=== PATIENT | female | born 1965 | race Caucasian/White ===

== ENCOUNTER → 2024-01-26 09:40 | Outpatient (CLI) | payer OTHER, SELFPAY ==
--- NOTE | 2024-01-26 09:43 | DI.CT.S_ITS ---
PROCEDURE: CT PEL WO CON INDICATIONS: S/P TOTAL REPLACEMENT OF RT HIP TECHNIQUE: Noncontrast 3 mm axial sections acquired through the bony pelvis, with coronal and sagittal reformatting. COMPARISON: None. FINDINGS: Image quality: Excellent. Bones: Total right hip arthroplasty. Mild heterotopic ossification adjacent to the prosthesis along the acetabulum. The acetabular component extends beyond the medial contours of the iliac bone into the pelvis and is positioned more superiorly than the contralateral hip on telephone advice nurse. Inferior acetabulum perihardware lucency measuring 6 millimeters. Soft tissues: Scattered diverticulosis without evidence of diverticulitis. Normal a noncontrast appearance of the remaining pelvic soft tissues. IMPRESSION: There is superior and medial positioning of the acetabular component of the prosthesis when compared to the contralateral side suggesting acetabular component loosening and/or migration. Dictated by: Levar Dc M.D. on 01/26/2024 at 15:17 Approved by: Levar Dc M.D. on 01/26/2024 at 15:26
== END ==
PROVIDERS: Referring Provider Orthopaedic Surgery Adult Reconstructive Orthopaedic Surgery; Visit Provider Orthopaedic Surgery Adult Reconstructive Orthopaedic Surgery
DX: Z96.641 Presence of right artificial hip joint (principal); Z09 Encounter for follow-up examination after completed treatment for conditions other than malignant neoplasm; K57.90 Diverticulosis of intestine, part unspecified, without perforation or abscess without bleeding
CPT/HCPCS: 72192

== ENCOUNTER → 2024-04-10 | Outpatient (CLI) | payer OTHER, SELFPAY ==
--- NOTE | 2024-04-10 | DI.MG.S_ITS ---
BILATERAL DIGITAL SCREENING MAMMOGRAM 3D/2D WITH CAD: 04/10/2024 CLINICAL: Routine screening. Family history of breast cancer. Additional films were requested but not obtained. Both breasts are heterogeneously dense, which may obscure small masses (category c / 51-75% glandular tissue). Current study was also evaluated with a Computer Aided Detection (CAD) system. No significant masses, calcifications, or other findings are seen in either breast. IMPRESSION: NEGATIVE There is no mammographic evidence of malignancy. A 1 year screening mammogram is recommended. Based on Tyrer-Cuzick model (a risk assessment model), the patient's lifetime risk is 21.3% and her 10 year risk is 9.0%. If a patient has an elevated risk, a more comprehensive evaluation should be considered and/or a referral to a genetic counselor. The [place] [employer], [place] [employer], and NCCN Guidelines advise the consideration of Breast MRI as an adjunct to screening mammography in patients whose Lifetime risk to develop breast cancer is 20% or higher. This exam was interpreted at Station ID: [id number]. NOTE: For mammograms, a report in lay terms will be sent to the patient. Approximately 15% of breast malignancies will not be visualized mammographically. In the management of a palpable breast mass, a negative mammogram must not discourage biopsy of a clinically suspicious lesion. Electronically Signed By: Carlos mehta/wesly:04/25/2024 14:43:25 letter sent: Normal Exam ACR BI-RADS Category 1: Negative [id number]
== END ==
PROVIDERS: PCP Physician Assistant Medical; Referring Provider Physician Assistant Medical; Visit Provider Physician Assistant Medical
DX: Z12.31 Encounter for screening mammogram for malignant neoplasm of breast (principal); Z80.3 Family history of malignant neoplasm of breast; R92.333 Mammographic heterogeneous density, bilateral breasts
CPT/HCPCS: 77063; 77067

== ENCOUNTER → 2024-04-14 10:41 | Outpatient (CLI) | payer OTHER, SELFPAY ==
--- NOTE | 2024-04-14 | DI.RAD.S_ITS ---
PROCEDURE: XR DEXA AXIAL SKELETON INDICATIONS: Asymptomatic menopausal state COMPARISON: None. FINDINGS: Lumbar Spine: Bone mineral density 1.026 g/cm2, T score -0.2. Left Hip: Bone mineral density 0.894 g/cm2, T score -0.4. Left Femoral Neck: Bone mineral density 0.720 g/cm2, T score -1.2. Left Forearm: Bone mineral density 0.679 g/cm2, T score -0.3. Fracture Risk Calculation (when applicable): 10-year fracture risk of a major osteoporotic fracture 13% and of a hip fracture 0.8%. (T score greater or equal to -1.0 to: NORMAL) (T score from -1.1 to -2.4: OSTEOPENIA) (T score less than or equal to -2.5: OSTEOPOROSIS) IMPRESSION: Osteopenia with increased 10 year fracture risk as above. Follow-up guidelines as follows: Osteoporosis: Consider a repeat DEXA and Vertebral Fracture Assessment (VFA) exam in 2 years or sooner if medically necessary, to reassess this patient's status. Osteopenia: Consider a repeat DEXA in 2-3 years to reassess this patient's status, or if there is a new clinical indication. Normal: Consider a repeat DEXA in 5 years or sooner, or if there is a new clinical indication. All treatment decisions require clinical judgment and consideration of individual patient factors, including patient preferences, comorbidities, previous drug use, risk factors not captured in the FRAX model (e.g., frailty, falls, vitamin D deficiency, increased bone turnover, interval significant decline in bone density ) and possible under- or over-estimation of fracture risk by FRAX. In addition, the NOF Guide recommends that FDA-approved medical therapies be considered in postmenopausal women and men age >= 50 years with a: * Hip or vertebral (clinical or morphometric) fracture * T-score of <=-2.5 at the spine or hip * Ten-year fracture probability by FRAX of >= 3% for hip fracture or >=20% for major osteoporotic fracture. People with diagnosed cases of osteoporosis or at high risk for fracture should have regular bone mineral density tests. For patients eligible for Medicare, routine testing is allowed once every 2 years. The testing frequency can be increased to one year for patients who have rapidly progressing disease, those who are receiving or discontinuing medical therapy to restore bone mass, or have additional risk factors. Dictated by: Ronald Flores M.D. on 04/14/2024 at 17:37 Approved by: Ronald Flores M.D. on 04/14/2024 at 17:38
== END ==
PROVIDERS: PCP Physician Assistant Medical; Referring Provider Physician Assistant Medical; Visit Provider Physician Assistant Medical
DX: M85.852 Other specified disorders of bone density and structure, left thigh (principal); Z78.0 Asymptomatic menopausal state
CPT/HCPCS: 77080; 77081

== ENCOUNTER 2024-06-13 08:22 | Day surgery (SDC) | payer OTHER, SELFPAY ==
[2024-06-11 15:09] VITALS: BMI 25.7
--- NOTE | 2024-06-13 | PATH_ITS ---
[facility] Accession Number: [id number] No. of containers..01 Tissue . 01 Material submitted: . cervix - CERVIX BIOPSY, SUTURE 12 O'CLOCK . 01 Diagnosis: UTERINE CERVIX, SUTURE AT 12 O'CLOCK, LEEP CONIZATION: High-grade squamous intraepithelial lesion (PEÑA-2/moderate dysplasia) extending to rare endocervical gland. Backround low-grade squamous intraepithelial lesion (PEÑA-1/mild dysplasia) and previous biopsy changes also present. Negative for glandular dysplasia and invasive carcinoma. Surgical margins: High-grade squamous intraepithelial lesion (PEÑA-2/moderate dysplasia) focally involves the endocervical margin, please see microscopic description. Remaining margins are not involved. MRV 06/18/2024 1358 Local . 01 Electronically signed: . Rod Garcia MD, Pathologist NPI- [id number] . 01 Gross description: . Received in formalin with two identifiers and suture 12 o'clock cervix biopsy, is an oriented circular fragment of skin with a suture at 12 o'clock per the requisition (1.4 cm from 12 to 6, 1.6 cm from 3 to 9, and 0.6 cm thick) with akins wrinkled ectocervix and a slit like os 0.5 cm in diameter. The endocervical margin is inked orange while the remaining stromal margins are inked blue. The specimen is radially sectioned and submitted entirely as follows: A1: 12 to 3. A2: 3 to 6. A3: 6 to 9. A4: 9 to 12. ([id number]) /JAMIE 06/14/2024 2154 Local . 01 Microscopic: . Microscopic examination reveals moderate squamous dysplasia extending into a rare endocervical gland. To better evaluate and confirm margin involvement by high-grade squamous intraepithelial lesion, p16 immunostain is performed (blocks A2 and A4) and is strong positive, supporting the morphologic impression of endocervical margin involvement. . Remaining margins are not involved. . * This test was developed and the performance characteristics were validated by [employer]. It has not been cleared or approved by the U.S. Food and Drug Administration. . 01 Pathologist provided ICD-10: N87.1 . 01 CPT . 328288, Q47365 Specimen Comment: A courtesy copy of this report has been sent to [phone] Performed at: [address] [address], [place], [place] [id number] MD Kailash Paul MD Phone: [phone]
[2024-06-13 08:38] VITALS: BP 156/89; PULSE 66; RESP 16; TEMP 36.2; O2SAT 99; BMI 25.7
[2024-06-13] MEDS: LACTATED RINGERS 1,000 ML 21 ML IV (08:58)
[2024-06-13] MEDS: ACETAMINOPHEN 325 MG TABLET 975 MG PO (08:58)
--- NOTE | 2024-06-13 09:24 | PM.GYNHP.1 ---
History of Present Illness History of Present Illness Reason for admission: other (Surgery for PEÑA 2 of the cervix) Narrative: Maria Ines Castillo is a 58 year old female 4 para 4 with PEÑA 2 of the cervix. She presents for a LEEP cone biopsy of the cervix. [facility] Surgical History (Updated 06/11/24 @ 15:09 by Brianna Parmar RN) H/O total hip arthroplasty Social History household members: spouse Smoking Status: Never smoker Meds Home Medications and Allergies Allergies Allergy/AdvReac Type Severity Reaction Status Date / Time No Known Drug Allergies Allergy Verified 06/13/24 08:37 Exam Vital Signs (past 8 hours): - 06/13/24 08:38 Temperature 97.2 F L Pulse Rate 66 Respiratory Rate 16 Blood Pressure 156/89 H Pulse Oximetry 99 Oxygen Delivery Method Room Air Oxygen Delivery Method Room Air Narrative Exam Narrative: HEENT: No thyromegaly, no anterior cervical or supraclavicular lymphadenopathy. Lungs:Clear to auscultation bilaterally, no wheezes. Cardiovascular: Regular rate and rhythm, no murmurs, rubs, or gallops. Abdomen: No scars. No hepatosplenomegaly. No masses palpable. External genitalia: Normal Vagina: Normal Cervix: Normal Bimanual exam: 6 Week size anteverted uterus. Mobile. Extremities: No edema Assessment & Plan Assessment & Plan narrative: Assessment: 58-year-old 4 para 4 with PEÑA 2 of the cervix Plan: LEEP cone biopsy of the cervix The risks, benefits, and alternatives to the procedure were explained to the patient. The risks including bleeding and infection. She understands these risks and agrees to proceed. A full par Q was held and consent form was signed. Time-Based Coding :: [TOTAL MINUTES] spent with patient and on the chart (including review of chart, obtaining history, exam, reviewing outside data, placing orders, documenting exam and treatment plan, and counseling patient) on [DATE].
--- NOTE | 2024-06-13 09:26 | PM.PREOP ---
Pre-operative Note Interval Note History & Physical reviewed/Exam performed by Physician: Yes Changes to H&P: No H&P completed within 30 days and has changed as indicated here:: 06/13/24
--- NOTE | 2024-06-13 09:46 | SUR.OPER ---
Lithotomy on padded OR bed, head on pillow, arms secured on padded arm boards at <90 degrees abduction. Legs secured in padded yellow fins stirrups.
[2024-06-13] MEDS: IODINE TOP (10:00)
[2024-06-13] MEDS: [UNRECOGNIZED DRUG - OTHER] TOP (10:00)
[2024-06-13 10:11] VITALS: BP 140/68; PULSE 75; RESP 20; TEMP 36.5; O2SAT 100
--- NOTE | 2024-06-13 10:16 | PM.GYNOP.1 ---
Operative Date/Time/Diagnoses Date of procedure: 06/13/24 Time of procedure: 10:16 Pre-op diagnosis: PEÑA 2 of the cervix Post-op diagnosis: same Procedure & Clinicians Procedure: Procedures Operation Date: 06/13/24 09:00 Actual Procedure Side Surgeon p LEEP Cone, BX of cervix Not Applicable Savanna Michael MD Indications: 58-year-old 4 para 4 with PEÑA 2 by colposcopic biopsy Surgeon: Savanna Michael Anesthesia Type: General (LMA) Operative Notes Findings: Lugol's light area at 6 o'clock position Closure Type: not applicable Specimen(s): other (LEEP cone biopsy of the cervix with suture at 12 o'clock) Estimated blood loss (mL): 2 Blood products transfused: none Procedure in detail: After informed consent was obtained, the patient was taken to the operating room where she was placed in the dorsal supine position. After adequate LMA general anesthesia was achieved, she was placed in the dorsal lithotomy position, and prepped and draped in the usual sterile fashion. A time-out was performed. A plastic coated bivalve speculum was placed into the vagina. A single-tooth tenaculum was placed on the anterior lip of the cervix. The cervix was coated with Lugol solution. There was a Lugol's light area at the 6 o'clock position. Using the 15 mm loop with settings at 80 cut and 60 cautery, a LEEP cone biopsy was performed. Ball cautery was used for hemostasis. A silk suture was placed at 12 o'clock. The single-tooth tenaculum was removed from the anterior lip of the cervix. The plastic coated speculum was removed from the vagina. Sponge, lap, and instrument counts were correct x2. The patient tolerated the procedure well, and was taken to PACU in stable condition. N 95 masks were worn by all personnel. Three sources of suction were used during the procedure. Complications: none Post-operative Condition: stable Disposition: PACU Plan for aftercare: Home after recovery
[2024-06-13 10:17] VITALS: BP 126/62; PULSE 82; RESP 18; O2SAT 99
[2024-06-13 10:22] VITALS: BP 132/70; PULSE 76; RESP 16; O2SAT 100
[2024-06-13 10:29] VITALS: BP 142/61; PULSE 79; RESP 16; O2SAT 99
== END 2024-06-13 10:54 | disposition home or self-care (01) ==
PROVIDERS: PCP Physician Assistant Medical; Referring Provider Obstetrics & Gynecology; Visit Provider Obstetrics & Gynecology
PROC: 0UBC7ZZ Excision of Cervix, Via Natural or Artificial Opening (ICD-10-PCS; CPT 57522; principal; 2024-06-13 09:00)
DX: N87.1 Moderate cervical dysplasia (principal)
CPT/HCPCS: 57522; J1100; J1885; J2405; J2704; J3010

== ENCOUNTER 2024-08-17 11:09 | Emergency (ER) | payer OTHER, SELFPAY ==
[2024-08-17 11:14] VITALS: BP 152/87; PULSE 72; RESP 16; TEMP 36.4; O2SAT 99; BMI 25.7
--- NOTE | 2024-08-17 11:39 | ED_ITS ---
HPI - Female Genitourinary <Lisseth Boo PA-C - Last Filed: 08/17/24 12:12> General Chief complaint: Urogenital-Female Stated complaint: POSS UTI Time Seen by Provider: 08/17/24 11:31 History of Present Illness HPI Narrative: Ms. Castillo is a very healthy 59-year-old female with a past medical history of cervical dysplasia who presents to the emergency department for UTI symptoms since yesterday. Patient reports yesterday she developed burning with ur ination, frequency of urination, and increased urge. States that her symptoms feel like a UTI. Reports recent sexual intercourse with her and also holding her bladder which she believes may precipitated the symptoms. She denies any pain during intercourse, vaginal discomfort, vaginal discharge, abdominal pain, nausea, vomiting, constipation, diarrhea, flank pain, fevers. chills. She does have some discomfort in the low back associated with urinating. States it has been a few years since she is needed antibiotics for UTI. She has not taken any medications prior to arrival. Related Data Allergies Allergy/AdvReac Type Severity Reaction Status Date / Time No Known Drug Allergies Allergy Verified 07/16/24 15:23 Review of Systems <Lisseth Boo PA-C - Last Filed: 08/17/24 12:12> Review of Systems ROS Unobtainable: All systems reviewed & are unremarkable except as noted in HPI and below Patient History <Lisseth Boo PA-C - Last Filed: 08/17/24 12:12> Surgical History Status post LEEP (loop electrosurgical excision procedure) of cervix H/O total hip arthroplasty Exam <Lisseth Boo PA-C - Last Filed: 08/17/24 12:12> Narrative Exam Narrative: GENERAL: 59 year old patient appears younger than stated age. Well-developed patient, in no acute distress. HEAD: Atraumatic. Normocephalic. EYES: Extraocular motions intact. No scleral icterus. No injection or drainage. ENT: Nose without bleeding, purulent drainage. NECK: Trachea midline. Cervical ROM intact. CARDIOVASCULAR: Regular rate RESPIRATORY: ?Nonlabored respirations. ?Speaking in clear, full sentences. GASTROINTESTINAL: Abdomen soft, non-tender, nondistended. EXTREMITIES: No edema or joint tenderness. BACK: No CVA tenderness. NEURO: AOx3. ?Clear speech. ?Moves all 4 extremities appropriately. SKIN: No rash or erythema of visible areas Initial Vital Signs Initial Vital Signs: Vital Signs Temperature 97.5 F L 08/17/24 11:14 Pulse Rate 72 08/17/24 11:14 Respiratory Rate 16 08/17/24 11:14 Blood Pressure 152/87 H 08/17/24 11:14 Pulse Oximetry 99 08/17/24 11:14 Oxygen Delivery Method Room Air 08/17/24 11:14 <Alexa Tyson DO - Last Filed: 08/22/24 08:37> Initial Vital Signs Initial Vital Signs: Vital Signs Temperature 97.5 F L 08/17/24 11:14 Pulse Rate 72 08/17/24 11:14 Respiratory Rate 16 08/17/24 11:14 Blood Pressure 152/87 H 08/17/24 11:14 Pulse Oximetry 99 08/17/24 11:14 Oxygen Delivery Method Room Air 08/17/24 11:14 Course <Lisseth Boo PA-C - Last Filed: 08/17/24 12:12> Orders Ordered: ED Orders 08/17/24 11:16 Urine Culture Stat 08/17/24 11:38 Urine Microscopic Stat Vital Signs Vital signs: Vital Signs - 8 hr 08/17/24 11:14 Temperature 97.5 F L Pulse Rate 72 Respiratory Rate 16 Blood Pressure 152/87 H Pulse Oximetry 99 Oxygen Delivery Method Room Air <Alexa Tyson DO - Last Filed: 08/22/24 08:37> Orders Ordered: ED Orders 08/17/24 11:16 Urine Culture Stat 08/17/24 11:38 Urine Microscopic Stat Vital Signs Vital signs: Vital Signs - 8 hr 08/17/24 11:14 Temperature 97.5 F L Pulse Rate 72 Respiratory Rate 16 Blood Pressure 152/87 H Pulse Oximetry 99 Oxygen Delivery Method Room Air MDM - Female Genitourinary <Lisseth Boo PA-C - Last Filed: 08/17/24 12:12> Medical Records Attestation: I reviewed the patient's medical records. Lab Data Labs: Lab Results 08/17/24 Range/Units 11:16 Urine RBC 5-10/hpf H (0-5/HPF) Urine WBC 30-100/hpf H (0-5/HPF) Ur Squamous Epith Cells None seen (0-5/HPF) Urine Bacteria Moderate (10-30) H (None) Ur Culture Indicated? Specimen cultured Vol Urine Centrifuged 10ml (spun) Urine Dip Bedside Urine Glucose Negative Bedside Urine Bilirubin - Negative Bedside Urine Ketone - Negative Urine Specific [place] 1.005 Bedside Urine Occult Blood +++ Bedside Urine pH 6.5 Bedside Urine Protein - Negative Bedside Urine Urobilinogen - Negative Bedside Urine Nitrite - Negative Bedside Urine Leukocytes +++ 500 Esterase MDM Narrative Medical decision making narrative: 59-year-old female with a past medical history of cervical dysplasia who presents to the emergency department for UTI symptoms since yesterday. Differential diagnosis includes but is not limited to UTI, cystitis, pyelo nephritis, vulvovaginal candidiasis, STD, kidney stone, etc. On exam the patient is in no acute distress, nontoxic appearing, afebrile and not tachycardic. BP slightly elevated 152/87, pt currently monitoring with her PCP, she is asymptomatic. Her abdomen is soft and nontender and she has no CVA tenderness. Patient is reporting a history of dysuria, frequency, urge consistent with UTI. She denies any vaginal discomfort or vaginal discharge. Urinalysis ordered. Urinalysis reveals 5-10 RBCs, 30-100 urine WBCs, moderate bacteria. No squamous epithelial cells. Urinalysis was cultured. Consistent with urinary tract infection. Patient was prescribed Macrobid b.i.d. x5 days in addition to azo x2 days for pain relief. Discussed signs and symptoms to return to the ER for. Advised follow up with PCP. Patient verbalized understanding of all information and is stable for discharge. Medication sent to pharmacy of choice. <Alexa Tyson, DO - Last Filed: 08/22/24 08:37> Lab Data Labs: Lab Results 08/17/24 Range/Units 11:16 Urine RBC 5-10/hpf H (0-5/HPF) Urine WBC 30-100/hpf H (0-5/HPF) Ur Squamous Epith Cells None seen (0-5/HPF) Urine Bacteria Moderate (10-30) H (None) Ur Culture Indicated? Specimen cultured Vol Urine Centrifuged 10ml (spun) Urine Dip Bedside Urine Glucose Negative Bedside Urine Bilirubin - Negative Bedside Urine Ketone - Negative Urine Specific [place] 1.005 Bedside Urine Occult Blood +++ Bedside Urine pH 6.5 Bedside Urine Protein - Negative Bedside Urine Urobilinogen - Negative Bedside Urine Nitrite - Negative Bedside Urine Leukocytes +++ 500 Esterase Discharge Plan Departure Patient Disposition: Home Clinical Impression: UTI (urinary tract infection) Qualifiers: Urinary tract infection type: acute cystitis Hematuria presence: with hematuria Qualified Code(s): N30.01 - Acute cystitis with hematuria Instructions: DI for Urinary Tract Infection (UTI) Activity Restrictions/Additional Instructions: Today your urine test was consistent with a urinary tract infection. I have sent both antibiotics and pain medication to the pharmacy for you to start today. A urine culture has been sent to the lab and if your antibiotic needs to be changed you will be called in about 3 days, otherwise you will not receive a phone call. Complete the full 5 day course of antibiotics even if your symptoms improve before that. If you develop fevers, chills, severe flank pain, vomiting, any other concerns, please return to the ER. Please follow up with your primary care doctor within the next week for ER follow-up. (If you do not have a PCP you can call [phone]. ?to schedule an appointment with an [facility] Primary Care Provider) IF YOU DEVELOP ANY NEW OR WORSENING SYMPTOMS, RETURN TO THE ER! Please read the attached instructions, they highlight more specific treatments and interventions for you at home. Thank you for letting me participate in your care, Lisseth Boo PA-C Referrals: Atiya Triveid PA-C [Primary Care Provider] - Stand Alone Forms: Patient Portal/API/Survey ED Sign-out <Alexa Tyson DO - Last Filed: 08/22/24 08:37> Cosign ED Attending Hai Attestation: I was immediately available in the department for consultation.
[2024-08-17 11:58] LABS: Urine Volume 10mL (spun)
[2024-08-17 11:59] LABS: Bacteria Urine Moderate (10-30); Culture Indicated Urine Specimen Cultured; RBC Urine 5-10/HPF (0-5/HPF); Squamous Epithelial Cell Urine None Seen (0-5/HPF); WBC Urine 30-100/HPF (0-5/HPF)
== END 2024-08-17 12:14 | disposition home or self-care (01) ==
PROVIDERS: Emergency Provider Physician Assistant; PCP Physician Assistant Medical
DX: N30.01 Acute cystitis with hematuria (principal)
CPT/HCPCS: 81003; 81015; 87077; 87086; 87186; 99281; 99282

== ENCOUNTER → 2025-04-06 07:09 | Outpatient (CLI) | payer OTHER, SELFPAY ==
--- NOTE | 2025-04-06 07:35 | DI.MRI.S_ITS ---
PROCEDURE: MR LUMBAR SPINE WO CON INDICATIONS: LUMBAR RADICULOPATHY TECHNIQUE: Noncontrast sagittal T1 spin echo and T2 fast echo, sagittal STIR, and T2 fast spin echo through the lumbar spine. In cases with scoliosis, additional coronal T2 fast spin echo may be performed. COMPARISON: [facility] [place], CR, XR LUMBAR SPINE WITH OBLIQUES PLUS FLEXION EXTENSION, 03/03/2024, 9:05. FINDINGS: Image quality: Excellent. Alignment and Curvature: Mild grade 1 retrolisthesis of L2 on L3, L3 on L4, and L5 on S1. Mild grade 1 anterolisthesis of L4 on L5. Mild levoconvex curvature of the lower lumbar spine. Bone Marrow: Marrow is of normal overall signal. No acute vertebral body compression fractures. Spinal Cord: Conus medullaris terminates at the L1 level. Visualized cord demonstrates normal signal and size. Paraspinous Soft Tissues: No paravertebral masses. T12-L1: No significant spinal canal stenosis or neural foraminal narrowing. L1-L2: No significant spinal canal stenosis or neural foraminal narrowing. L2-L3: Disc desiccation and mild circumferential disc bulging as well as mild facet hypertrophy. Findings result in mild bilateral neural foraminal narrowing without significant spinal canal stenosis. L3-L4: Disc desiccation and circumferential disc bulging as well as bilateral facet hypertrophy and mild buckling of the ligamentum flavum. Findings result in mild narrowing of the spinal canal as well as moderate bilateral neural foraminal narrowing. L4-L5: Disc desiccation and circumferential disc bulging as well as moderate to severe bilateral facet hypertrophy and buckling of the ligamentum flavum. Findings result in severe narrowing of the spinal canal with effacement of the bilateral lateral recesses as well as moderate to severe right and mild left neural foraminal narrowing. L5-S1: Disc desiccation and circumferential disc bulging as well as bilateral facet hypertrophy, which result in at least moderate bilateral neural foraminal narrowing without significant spinal canal stenosis. IMPRESSION: 1. At L4-5, degenerative changes and grade 1 anterolisthesis result in severe spinal canal stenosis as well as effacement of the bilateral lateral recesses and moderate to severe right and mild left neural foraminal narrowing. 2. Additional multilevel degenerative disc disease and facet hypertrophy as described in the body of the report. Approved by: Carlos Rhodes M.D. on 04/06/2025 at 23:22
--- NOTE | 2025-04-06 07:55 | DI.RAD.S_ITS ---
PROCEDURE: XR KNEE RT 3V INDICATIONS: RT KNEE PAIN TECHNIQUE: 3 views of the knee were acquired. COMPARISON: None. FINDINGS: Bones: No acute fractures or dislocations. No suspicious bony lesions. Mild tricompartmental osteoarthrosis of the right knee with minimal medial femorotibial compartment joint space narrowing. Soft tissues: No joint effusion. No suspicious soft tissue calcifications. IMPRESSION: No acute bony abnormality or significant effusion. Mild tricompartmental osteoarthrosis of the right knee. Dictated by: Corby Gracia M.D. on 04/06/2025 at 12:27 Approved by: Corby Gracia M.D. on 04/06/2025 at 12:28
== END ==
PROVIDERS: PCP Physician Assistant Medical; Referring Provider Physician Assistant Medical; Visit Provider Physician Assistant Medical
DX: M43.16 Spondylolisthesis, lumbar region (principal); M47.26 Other spondylosis with radiculopathy, lumbar region; M51.16 Intervertebral disc disorders with radiculopathy, lumbar region; M48.061 Spinal stenosis, lumbar region without neurogenic claudication; M47.27 Other spondylosis with radiculopathy, lumbosacral region; M51.17 Intervertebral disc disorders with radiculopathy, lumbosacral region; M48.07 Spinal stenosis, lumbosacral region; M17.11 Unilateral primary osteoarthritis, right knee; M25.561 Pain in right knee
CPT/HCPCS: 72148; 73562

== ENCOUNTER → 2025-06-09 12:35 | Outpatient (CLI) | payer OTHER, SELFPAY ==
--- NOTE | 2025-06-09 12:36 | DI.MRI.S_ITS ---
MR breast BI wo/w con: 06/09/2025. BI-RADS: 1 CLINICAL: 59-year old female for bilateral diagnostic breast MRI. Current reported family history of breast cancer: sister. PRIOR EXAMS Mammogram(s): 04/15/2025. One Other Exam on 04/10/2024. MRI TECHNIQUE Bilateral breast MRI was performed on a 1.5 Jina magnet using a dedicated breast coil with mild compression. Axial T1 and T2 STIR sequences were obtained. Dynamic contrast enhanced VIBRANT fat-suppressed sequences were obtained. Delayed sagittal high resolution or sagittal reconstructed isotropic sequence was also obtained. Subtraction images and maximum intensity projection images were obtained. The study was evaluated using [employer] software. IV Contrast: 20 ml ProHance. FIBROGLANDULAR TISSUE Bilateral: C. Heterogeneous fibroglandular tissue. BACKGROUND PARENCHYMAL ENHANCEMENT Bilateral: Mild symmetrical background parenchymal enhancement. BREAST FINDINGS Bilateral: There is no suspicious mass or non-mass enhancement. No suspicious architectural distortion. No skin or nipple abnormalities. No internal mammary chain or axillary adenopathy. CHEST FINDINGS Visualized portions of the chest appear unremarkable. ABDOMEN FINDINGS Visualized portions of the upper abdomen appear unremarkable. IMPRESSION: * No evidence of malignancy. RECOMMENDATIONS Bilateral * Annual screening mammography. OVERALL ASSESSMENT CATEGORY BI-RADS-1: Negative. ELECTRONICALLY SIGNED: Corby Gracia M.D. on 06/09/2025 at 10:20:04 PM PT Interpreting Station ID: [id number]
== END ==
LOC: MRI 12:35
PROVIDERS: PCP Physician Assistant Medical; Referring Provider Physician Assistant Medical; Visit Provider Physician Assistant Medical
DX: Z12.39 Encounter for other screening for malignant neoplasm of breast (principal); N60.19 Diffuse cystic mastopathy of unspecified breast; R92.333 Mammographic heterogeneous density, bilateral breasts; Z80.3 Family history of malignant neoplasm of breast; Z91.89 Other specified personal risk factors, not elsewhere classified
CPT/HCPCS: 77049; A9579

== ENCOUNTER → 2025-07-01 11:09 | Outpatient (CLI) | payer OTHER, SELFPAY | PROVIDERS: PCP Physician Assistant Medical; Visit Provider Obstetrics & Gynecology | DX: B00.9 Herpesviral infection, unspecified (principal) | CPT/HCPCS: 87255 ==